=== PATIENT | female | born 1950 | race Caucasian/White ===

== ENCOUNTER 2016-09-12 12:48 | Outpatient (CLI) ==
--- NOTE | 2016-09-12 13:16 | DI ---
EXAM: Left foot two views HISTORY: Left foot pain COMPARISON: None FINDINGS: No fracture or dislocation. Mild osteoarthritis first MTP joint with joint space narrowi ng osteophyte formation. Mild scattered osteoarthritis of the interphalangeal joints. Mild posteri or calcaneal enthesopathy IMPERSSION: Mild osteoarthritis
== END 2016-09-12 12:49 | disposition home or self-care (01) ==
LOC: RAD 12:48
PROVIDERS: ATTEND Family Medicine
DX: M79.672 Pain in left foot (principal)

== ENCOUNTER 2017-11-18 14:44 | Emergency (ER) ==
[2017-11-18 14:51] VITALS: BP 147/87; TEMP 98.6; BMI 28.6
--- NOTE | 2017-11-18 16:53 | ED.PDOC ---
General ED Provider: Dr. RADHA GRANDE Chief Complaint: Multiple Trauma Stated Complaint: fall chest wall pain Time Seen by Physician: 15:00 Mode of Arrival: Walk-In Information Source: Patient Exam Limitations: No limitations Primary Care Provider: JONNY VILLALPANDO Nursing and Triage Documentation Reviewed and Agree: Yes Reviewed sepsis parameters & appropriate labs ordered?: Yes System Inflammatory Response Syndrome: Not Applicable Sepsis Protocol: For patient's 13 years and over: Temp is 96.8 and below OR 101 and greater Pulse >90 BPM Resp >20/minute Acutely Altered Mental Status Are patient's symptoms suggestive of a new infection, such as: -Pneumonia -Skin, Soft Tissue -Endocarditis -UTI -Bone, Joint Infection -Implantable Device -Acute Abdominal Infection -Wound Infection -Meningitis -Blood Stream Catheter Infection -Unknown System Inflammatory Response Syndrome: Not Applicable Trauma/Injury Complaint Exam - Trauma Complaint/Exam Location of Pain or Injury: Reports: Chest Mechanism of Injury: Reports: Fall Onset/Duration: today Symptoms Are: Still present Timing of Treatment: Immediate Initial Severity: Moderate Current Severity: Moderate Character: Reports: Aching Aggravating: Reports: Movement Alleviating: Reports: Rest Associated Signs and Symptoms: Denies: LOC, Confusion, Memory loss, Lethargy, Vomiting, Bleeding, Bruising, Swelling, Extremity disuse, Painful respiration, Hoarseness, Dysphagia, Hemoptysis, Significant blood loss Related History: Reports: Similar episode Nexus Low Risk Criteria: No post-midline CS tender, No evidence of intoxicat., No Altered LOC, No focal neuro deficit, No distracting injuries Immobilization Removed Post Exam: No Glascow Coma Scale (see protocol): 15 Review of Systems - Review Of Systems Constitutional: Reports: No symptoms Eyes: Reports: No symptoms Ears, Nose, Mouth, Throat: Reports: No symptoms Respiratory: Reports: No symptoms Cardiac: Reports: Chest pain GI: Reports: No symptoms : Reports: No symptoms Musculoskeletal: Reports: No symptoms Skin: Reports: No symptoms Neurological: Reports: No symptoms Endocrine: Reports: No symptoms Hematologic/Lymphatic: Reports: No symptoms All Other Systems: Reviewed and Negative Past Medical History - Past Medical History Previously Healthy: Yes Endocrine: Reports: None Cardiovascular: Reports: None Respiratory: Reports: None Hematological: Reports: None Gastrointestinal: Reports: None Genitourinary: Reports: None Neuro/Psych: Reports: None Musculoskeletal: Reports: None Cancer: Reports: None Last Menstrual Period: hysterectomy - Surgical History General Surgical History: Reports: None - Family History Family History: Reports: None - Social History Smoking Status: Former smoker Hx Substance Use: No Alcohol Screening: None Physical Exam - Physical Exam Appearance: Well-appearing, No pain distress, Well-nourished Eyes: DALE, EOMI, Conjunctiva clear ENT: Ears normal, Nose normal, Oropharynx normal Respiratory: Airway patent, Breath sounds clear, Breath sounds equal, Respirations nonlabored Cardiovascular: RRR, Pulses normal, No rub, No murmur GI/: Soft, Nontender, No masses, Bowel sounds normal, No Organomegaly Musculoskeletal: Normal strength, ROM intact, No edema, No calf tenderness Skin: Warm, Dry, Normal color Neurological: Sensation intact, Motor intact, Reflexes intact, Cranial nerves intact, Alert, Oriented Psychiatric: Affect appropriate, Mood appropriate Interpretation - Radiology Interpretation Radiology Interpretation By: Radiologist Radiology Results: No acute changes Critical Care Note - Critical Care Note Total Time (mins): 0 Course - Course Orders, Labs, Meds: Orders Category Date Time Status CT CHEST W/O CONTRAST Stat RADS 11/18/17 15:19 Taken Vital Signs: Temp Pulse Resp BP Pulse Ox 11/18/17 14:44 98.6 F 84 20 147/87 H 95 Departure - Departure Time of Disposition: 16:51 Disposition: HOME SELF-CARE Discharge Problem: Chest pain Qualifiers: Chest pain type: unspecified Qualified Code(s): R07.9 - Chest pain, unspecified Instructions: Thoracic Pain (ED), Chest Pain (ED), Chest Pain (DC), Chest Wall Pain (ED) Condition: Good Pt referred to PMD for follow-up: Yes IPMP verified?: No Additional Instructions: Please call your Family Physician as soon as possible to schedule a follow-up appointment. Prescriptions: Hydrocodone/Acetaminophen [[place] 10-325 Tablet] 1 each PO Q8HR #12 tablet Allergies/Adverse Reactions: Allergies metronidazole [From Flagyl] Adverse Reaction (Verified 11/18/17 14:54) Sulfa (Sulfonamide Antibiotics) Adverse Reaction (Verified 11/18/17 14:53) Home Medications: Ambulatory Orders Amitriptyline HCl 25 mg PO BEDTIME 11/18/17 Aspirin [Aspir-Low] 81 mg PO DAILY 11/18/17 Bupropion HCl [Wellbutrin] 75 mg PO DAILY 11/18/17 Hydrocodone/Acetaminophen [[place] 10-325 Tablet] 1 each PO Q8HR #12 tablet Lorazepam 0.5 mg PO DIRECTED 11/18/17 Meloxicam 15 mg PO DAILY 11/18/17 Simvastatin 20 mg PO DAILY 11/18/17
--- NOTE | 2017-11-18 16:55 | CT ---
EXAM: CT of the chest without contrast History: Chest trauma and right chest wall pain. Comparison: Chest radiograph 11/08/2008 Technique: Multiplanar CT images through the thorax were obtained without the administration of IV c ontrast Findings: Heart size is within normal limits. Trace pericardial fluid or thickening. Great vessels are unremarkable. No pathologically enlarged thoracic lymph nodes. No consolidation. No pleural fl uid and no pneumothorax. No suspicious lung nodules or lung masses. Subsegmental atelectasis seen w ithin the right middle lobe and lingula. Within the visualized upper abdomen, status post cholecystectomy. No acute osseous abnormalities. Impression: No acute intrathoracic process.
== END 2017-11-18 17:09 | disposition home or self-care (01) ==
LOC: ED 14:44
DX: R07.89 Other chest pain (principal); W19.XXXA Unspecified fall, initial encounter
CPT/HCPCS: 99283